=== PATIENT | female | born 1940 | race Caucasian/White ===

== ENCOUNTER 2017-11-21 16:53 | Emergency (ER) | payer OTHER ==
[~2017-11-21] VITALS: Ht 167.6 cm; Wt 80.4 kg
[~2017-11-21 16:53] MED LIST: Aspirin E.C. PO; Biotin PO; CALCIUM PO; Fish Oil PO; HYDROCODONE PO; Lotensin PO; Norvasc PO; Theragran PO
[2017-11-21] MEDS ORDERED: HYZAAR 100-11 TABLET PO (18:13)
[2017-11-21] MEDS ORDERED: TYLENOL WITH C1 EACH PO (19:54)
[2017-11-21 20:09] VITALS: BP 146/79
== END 2017-11-21 20:10 | disposition home or self-care (01) ==
LOC: EME 16:53
DX: S70.12XA Contusion of left thigh, initial encounter (principal); S50.311A Abrasion of right elbow, initial encounter; I10 Essential (primary) hypertension; V03.10XA Pedestrian on foot injured in collision with car, pick-up truck or van in traffic accident, initial encounter; Y92.481 Parking lot as the place of occurrence of the external cause; Y93.01 Activity, walking, marching and hiking; Z96.651 Presence of right artificial knee joint
CPT/HCPCS: 72170; 73080; 73552; 73564; 99281; 99284